=== PATIENT | female | born 1970 | race Caucasian/White ===

== ENCOUNTER 2024-11-18 10:55 | Emergency (ER) | payer OTHER, SELFPAY ==
[2024-11-18 11:02] VITALS: BP 90/45; PULSE 91; TEMP 36.6; O2SAT 100; BMI 19.2
--- NOTE | 2024-11-18 11:23 | ED.NAVMDI1 ---
HPI - Nausea/Vomiting/Diarrhea General Chief complaint: Nausea/Vomiting/Diarrhea Stated complaint: FLU LIKE SYMPTOMS DEHYDRATED Time Seen by Provider: 11/18/24 11:11 Source: patient Mode of arrival: walk-in History of Present Illness HPI Narrative: 54-year-old female presents to the emergency department for nausea and vomiting. She has had this for 2 days. She has not had a fever or been around anybody that she knows to be ill. She has had minimal diarrhea. Related Data Home Medications ?Medication ?Instructions ?Recorded ?Confirmed escitalopram oxalate 10 mg tablet mg 11/18/24 levothyroxine 75 mcg tablet mcg 11/18/24 liothyronine 5 mcg tablet mcg 11/18/24 Previous Rx's ?Medication ?Instructions ?Recorded ondansetron 4 mg disintegrating 4 mg PO Q6H PRN nausea and 11/18/24 tablet vomiting #20 tabs Allergies Allergy/AdvReac Type Severity Reaction Status Date / Time Penicillins Allergy Unknown Verified 11/18/24 11:02 Review of Systems ROS Narrative A ten point review of systems is negative except as noted above. PFSH PFSH Social History Little interest or pleasure in doing things: not at all Feeling down, depressed, or hopeless: not at all Exam Narrative Exam Narrative: Nurses note and vital signs reviewed and patient is not hypoxic. General: The patient appears well and in no apparent distress. Patient is resting comfortably on cart. Skin: Warm, dry, no pallor noted. There is no rash noted. Head: Normocephalic, atraumatic Eye: Normal conjunctiva, no drainage Ears, Nose, Mouth, and Throat: oral mucosa is moist. Nares patent. Cardiovascular: Regular Rate and Rhythm Respiratory: Patient is in no distress, no accessory muscle use, lungs are clear to auscultation, no wheezing, rales or rhonchi Back: non-tender GI: Soft and nontender Musculoskeletal: The patient has no evidence of calf tenderness, no pitting edema, symmetrical pulses noted bilaterally Neurological: A&O, normal speech Psychiatric: Cooperative Constitutional Vital Signs, click to edit/add: Last Vital Signs Temp 97.9 F 11/18/24 11:02 Pulse 91 H 11/18/24 11:02 Resp 16 11/18/24 11:02 BP 90/45 L 11/18/24 11:02 Pulse Ox 100 11/18/24 11:02 O2 Del Method Room Air 11/18/24 11:02 Course Vital Signs Vital signs: Vital Signs Temperature 97.9 F 11/18/24 11:02 Pulse Rate 91 H 11/18/24 11:02 Respiratory Rate 16 11/18/24 11:02 Blood Pressure 90/45 L 11/18/24 11:02 Pulse Oximetry 100 11/18/24 11:02 Oxygen Delivery Method Room Air 11/18/24 11:02 Temperature 97.9 F 11/18/24 11:02 Pulse Rate 91 H 11/18/24 11:02 Respiratory Rate 16 11/18/24 11:02 Blood Pressure 90/45 L 11/18/24 11:02 Pulse Oximetry 100 11/18/24 11:02 Oxygen Delivery Method Room Air 11/18/24 11:02 MDM - Nausea/Vomiting/Diarrhea MDM Narrative Medical decision making narrative: Blood work is nonspecific and the patient is feeling improved with IV fluids and IV Zofran. She is tolerating p.o. liquids and will be discharged home with a prescription for Zofran. Treatment diagnosis and follow-up were discussed with the patient. Lab Data Attestation: I reviewed the patient's lab results. Labs: Lab Results 11/18/24 Range/Units 11:20 WBC 10.0 (4.0-11.0) 10^3/uL RBC 5.16 (4.20-5.40) 10^6/uL Hgb 15.5 (12.0-16.0) g/dL Hct 46.5 (36.0-48.0) % MCV 90.1 (81.0-99.0) fL MCH 30.0 (26.7-34.0) pg MCHC 33.3 (29.9-35.2) g/dL RDW 11.2 (11.0-15.0) % Plt Count 270 (150-450) 10^3/uL MPV 9.9 (9.5-13.5) fL Neut % (Auto) 79.8 H (43.0-75.0) % Lymph % (Auto) 13.0 L (20.5-60.0) % Davidson % (Auto) 6.1 (1.7-12.0) % Eos % (Auto) 0.6 L (0.9-7.0) % Baso % (Auto) 0.3 (0.2-2.0) % Neut # (Auto) 8.0 H (1.4-6.5) 10^3/uL Lymph # (Auto) 1.3 (1.2-3.8) 10^3/uL Davidson # (Auto) 0.6 (0.3-0.8) 10^3/uL Eos # (Auto) 0.1 (0.0-0.7) 10^3/uL Baso # (Auto) 0.0 (0.0-0.1) 10^3/uL Abs Immat Gran (auto) 0.02 (0.00-0.03) 10^3/uL Imm/Tot Granulo (auto) 0.2 (0.0-0.5) % Sodium 140 (136-145) mmol/L Potassium 3.5 (3.5-5.1) mmol/L Chloride 104 (98-107) mmol/L Carbon Dioxide 29.1 (21.0-32.0) mmol/L Anion Gap 10.4 BUN 16.0 (7.0-18.0) mg/dL Creatinine 0.92 (0.55-1.02) mg/dL Est GFR ( Amer) >60 (>=60 mL/min/1.73m^2) Est GFR (Non-Af Amer) >60 (>=60 mL/min/1.73m^2) BUN/Creatinine Ratio 17.4 Glucose 114 H (74-106) mg/dL Calcium 10.0 (8.5-10.1) mg/dL Discharge Plan Discharge Chief Complaint: Nausea/Vomiting/Diarrhea Clinical Impression: Nausea and vomiting Patient Disposition: Home, Self-Care Time of Disposition Decision: 13:15 Mode of Transportation: Private Vehicle Prescriptions / Home Meds: New ondansetron 4 mg tablet,disintegrating 4 mg PO Q6H PRN (Reason: nausea and vomiting) Qty: 20 0RF No Action liothyronine 5 mcg tablet levothyroxine 75 mcg tablet escitalopram oxalate 10 mg tablet Print Language: Italian Instructions: Acute Nausea and Vomiting (ED) Referrals: BHAVANA IBRAHIM [Primary Care Provider] - 1 week
[2024-11-18 11:31] LABS: Basophils Percent Auto 0.3 % (0.2-2.0); Eosinophils Absolute Auto 0.1 10^3/uL (0.0-0.7); Eosinophils Percent Auto 0.6 % (0.9-7.0); Hematocrit 46.5 % (36.0-48.0); Hemoglobin 15.5 g/dL (12.0-16.0); Immature Granulocytes Abs Auto 0.02 10^3/uL (0.00-0.03); Immature Granulocytes Pct Auto 0.2 % (0.0-0.5); Lymphocytes Absolute Auto 1.3 10^3/uL (1.2-3.8); Mean Corpuscular HGB Conc 33.3 g/dL (29.9-35.2); Mean Corpuscular Volume 90.1 fL (81.0-99.0); Mean Platelet Volume 9.9 fL (9.5-13.5); Monocytes Absolute Auto 0.6 10^3/uL (0.3-0.8); Monocytes Percent Auto 6.1 % (1.7-12.0); Neutrophils Percent Auto 79.8 % (43.0-75.0); Platelet Count 270 10^3/uL (150-450); Red Blood Count 5.16 10^6/uL (4.20-5.40); Red Cell Distribution Width 11.2 % (11.0-15.0)
[2024-11-18] MEDS: ONDANSETRON PF 4 MG/2 ML VIAL IV (11:38)
[2024-11-18] MEDS: 0.9 % SODIUM CHLORIDE 1,000 ML 1000 ML IV (11:38)
[2024-11-18 11:49] LABS: Anion Gap 10.4; BUN Creatinine Ratio 17.4; Carbon Dioxide 29.1 mmol/L (21.0-32.0); Chloride 104 mmol/L (98-107); Estimated GFR (African America >60 (>=60 mL/min/1.73m^2); Estimated GFR (Non-African Ame >60 (>=60 mL/min/1.73m^2); Glucose 114 mg/dL (74-106); Potassium 3.5 mmol/L (3.5-5.1); Sodium 140 mmol/L (136-145)
[2024-11-18 13:28] VITALS: BP 128/78; PULSE 81; O2SAT 100
== END 2024-11-18 13:28 | disposition home or self-care (01) ==
PROVIDERS: Emergency Provider Emergency Medicine; PCP Family Medicine
DX: R11.2 Nausea with vomiting, unspecified (principal)
CPT/HCPCS: 36415; 80048; 85025; 96361; 96374; 99284; J2405